=== PATIENT | male | born 2000 | race Caucasian/White ===

== ENCOUNTER 2018-10-28 17:32 | Day surgery (SDC) | payer BC ==
[~2018-10-28] VITALS: Ht 190.5 cm; Wt 85.9 kg
[2018-10-28 21:45] VITALS: BP 115/63; PULSE 64; TEMP 98.6
[2018-10-28 22:00] VITALS: BP 134/80; PULSE 66; TEMP 98.6
[2018-10-28 22:15] VITALS: BP 125/57; PULSE 71; TEMP 97.4
[2018-10-28 22:30] VITALS: BP 133/77; PULSE 57; TEMP 97.4
[2018-10-28 23:00] VITALS: BP 108/59; PULSE 65; TEMP 97.4
[2018-10-28 23:30] VITALS: BP 140/79; PULSE 63; TEMP 97.6
[2018-10-29 00:30] VITALS: BP 128/61; PULSE 60; TEMP 97.6
[2018-10-29 01:30] VITALS: BP 125/60; PULSE 62; TEMP 97.4
[2018-10-29 04:00] VITALS: BP 130/54; PULSE 54; TEMP 98.3
--- NOTE | 2018-10-29 06:20 | NUR ---
Pt tolerating PO fluids and food. IV converted to SL.
--- NOTE | 2018-10-29 06:52 | NUR ---
Report given to Johan XIAO. No distress noted. Pt denies pain and nausea.
[2018-10-29 08:02] VITALS: BP 121/58; PULSE 48; TEMP 97.9
--- NOTE | 2018-10-29 10:23 | NUR ---
Initial visit; Patient thanked Outpatient Pharmacy Manager for looking in on him and offering God's blessings.
[2018-10-29 11:24] VITALS: BP 115/57; PULSE 52; TEMP 98
--- NOTE | 2018-10-29 11:31 | NUR ---
PT INDENPENDENT IN ROOM DENIES NEEDS. ENCOURAGED AMBULATION AND PT VERBALIZED UNDERSTANDING.
--- NOTE | 2018-10-29 14:29 | NUR ---
BECKI met with patient and parents about discharge planning. Patient is a [employer] student and lives independently at home. Patient uses [facility] for primary care and he obtains prescriptions from [id number]. Patient does not use any home health services or DME. Patient does not have a DPOA. Patient would like SW to contact [employer] to inform them that he is hospitalized. BECKI does not anticipate any discharge needs. BECKI contacted [employer] and informed them that patient is hospitalized and that he will not be in classes the rest of the week.
--- NOTE | 2018-10-29 16:00 | NUR ---
DISCHARGE INSTRUCTIONS PROVIDED TO PATEINT AND FAMILY QUESTIONS ANSWERED. PT LEFT AMBULATORY ESCORTED BY STAFF.
== END 2018-10-29 16:01 | disposition home or self-care (01) ==
LOC: COL.ER 17:32 → SDCO 19:24 → SURG 21:56 → SDCO 10-29 16:01
DX: K35.80 Unspecified acute appendicitis (principal)
CPT/HCPCS: OP; J0330; J1100; J1885; J2405; J2543; J2704; J2710; J3010; J7030; J7042; Q9967